=== PATIENT | female | born 1990 | race Caucasian/White ===

== ENCOUNTER 2019-06-08 00:26 | Emergency (ER) | payer MEDICAID, OTHER ==
[~2019-06-08] VITALS: Ht 167.7 cm; Wt 70.3 kg
[2019-06-08 00:26] VITALS: BP 121/66
[2019-06-08] MEDS ORDERED: LACTATED RINGERS 1,000 ML IV ONE (00:37)
[2019-06-08] MEDS ORDERED: fentaNYL INJECTION 100 MCG/2 ML AMP IVP ONE ×2 (00:45→01:15)
[2019-06-08] MEDS ORDERED: ONDANSETRON 4 MG/2 ML (SDV) Z0FRAN IVP ONE (00:45)
--- NOTE | 2019-06-08 00:46 | ED Abdominal Pain ---
General Stated Complaint: ABD PAIN Source of Information: Patient, EMS Exam Limitations: No Limitations History of Present Illness Date Seen by Provider: Jun 08, 2019 Time Seen by Provider: 00:26 Initial Comments The patient presents to ER by EMS from [facility] work [facility] with chief complaint that about an hour and a half prior to arrival she began to experience some epigastric pain is sharp 8 out of 10 By nausea but no vomiting. She's had this off-and-on for over a year now. When she was at [facility] in [place], [place] she was put in the hospital for elevated lipase for 2 days given fluids and pain medicines and then referred to a newspaper deliverer. She never followed up with newspaper deliverer of your primary care doctor since then she has had breast augmentation 3 months ago and for the past year and a half she has been on phentermine. She has not taken anything besides ibuprofen Rolaids tonight with minimal relief of her symptoms. She only occasionally drinks alcohol with last drink being over the weekend. She denies anything tonight. She denies a history of hyperlipidemia, hypertriglyceridemia, diabetes. She is having no abdominal surgeries or trauma. Has not vomited or had diarrhea. She has chronic constipation. She denies a history of cystic fibrosis. She's not having any shortness of breath or chest. Her chills. No dysuria or discharge. Allergies and Home Medications Allergies Coded Allergies: cefaclor (Verified Allergy, Unknown, 06/08/19) Patient Home Medication List Home Medication List Reviewed: Yes Review of Systems Review of Systems Constitutional: No chills, No fever, No malaise EENTM: No Blurred Vision, No Double Vision Respiratory: Denies Cough, Denies Shortness of Air Cardiovascular: Denies Chest Pain, Denies Irregular Heart Rate, Denies Lightheadedness, Denies Palpitations, Denies Syncope Gastrointestinal: See HPI, Abdominal Pain, Constipated; Denies Diarrhea; Nausea; Denies Vomiting Genitourinary: Denies Burning, Denies Discharge Musculoskeletal: No back pain, No joint pain Skin: No pruritus, No rash Psychiatric/Neurological: Denies Headache, Denies Numbness, Denies Paresthesia All Other Systems Reviewed Negative Unless Noted: Yes Past Bkreugh-Iymcia-Wmgnev Hx Patient Social History Alcohol Use: Occasionally Uses Number of Drinks Today: 0 Recreational Drug Use: No Smoking Status: Current Everyday Smoker Type Used: Cigarettes (0.5 ppd) Physical Exam Vital Signs Vital Signs - First Documented 06/08/19 00:26 Temp 36.6 Pulse 79 Resp 20 B/P (MAP) 121/66 (84) Pulse Ox 98 Capillary Refill : Height/Weight/BMI Height: '" Weight: lbs. oz. kg; BMI Method: General Appearance: WD/WN, mild distress HEENT: PERRL/EOMI, pharynx normal Neck: full range of motion, normal inspection Respiratory: lungs clear, normal breath sounds, no respiratory distress, no accessory muscle use Cardiovascular: normal peripheral pulses, regular rate, rhythm Peripheral Pulses: 2+ Dorsalis Pedis (R), 2+ Left Dors-Pedis (L), 2+ Radial Pulses (R), 2+ Radial Pulses (L) Gastrointestinal: normal bowel sounds (quiescent), soft, tenderness (epigastric region), other (negative for Barboza sign, right upper quadrant pain, McBurney's point tenderness or rebound tenderness. No mesenteric signs no psoas sign.) Back: normal inspection, no CVA tenderness Progress/Results/Core Measures Results/Orders Lab Results Laboratory Tests Test 06/08/19 00:35 06/08/19 02:00 Range/Units White Blood Count 8.3 4.3-11.0 10^3/uL Red Blood Count 4.64 4.35-5.85 10^6/uL Hemoglobin 13.5 11.5-16.0 G/DL Hematocrit 39 35-52 % Mean Corpuscular Volume 84 80-99 FL Mean Corpuscular Hemoglobin 29 25-34 PG Mean Corpuscular Hemoglobin Concent 35 32-36 G/DL Red Cell Distribution Width 13.2 10.0-14.5 % Platelet Count 238 130-400 10^3/uL Mean Platelet Volume 9.2 7.4-10.4 FL Neutrophils (%) (Auto) 54 42-75 % Lymphocytes (%) (Auto) 39 12-44 % Monocytes (%) (Auto) 6 0-12 % Eosinophils (%) (Auto) 1 0-10 % Basophils (%) (Auto) 0 0-10 % Neutrophils # (Auto) 4.4 1.8-7.8 X 10^3 Lymphocytes # (Auto) 3.2 1.0-4.0 X 10^3 Monocytes # (Auto) 0.5 0.0-1.0 X 10^3 Eosinophils # (Auto) 0.1 0.0-0.3 10^3/uL Basophils # (Auto) 0.0 0.0-0.1 10^3/uL Sodium Level 137 135-145 MMOL/L Potassium Level 3.6 3.6-5.0 MMOL/L Chloride Level 107 98-107 MMOL/L Carbon Dioxide Level 19 L 21-32 MMOL/L Anion Gap 11 5-14 MMOL/L Blood Urea Nitrogen 13 7-18 MG/DL Creatinine 0.73 0.60-1.30 MG/DL Estimat Glomerular Filtration Rate > 60 BUN/Creatinine Ratio 18 Glucose Level 100 70-105 MG/DL Calcium Level 9.6 8.5-10.1 MG/DL Corrected Calcium 9.2 8.5-10.1 MG/DL Total Bilirubin 0.7 0.1-1.0 MG/DL Aspartate Amino Transf (AST/SGOT) 15 5-34 U/L Alanine Aminotransferase (ALT/SGPT) 15 0-55 U/L Alkaline Phosphatase 58 40-136 U/L Troponin I < 0.028 <0.028 NG/ML Total Protein 7.2 6.4-8.2 GM/DL Albumin 4.5 3.2-4.5 GM/DL Amylase Level 36 25-125 U/L Lipase 9 8-78 U/L Serum Test, Qualitative NEGATIVE NEGATIVE Urine Color YELLOW Urine Clarity SL CLOUDY Urine pH 8.0 5-9 Urine Specific [place] 1.015 L 1.016-1.022 Urine Protein NEGATIVE NEGATIVE Urine Glucose (UA) NEGATIVE NEGATIVE Urine Ketones NEGATIVE NEGATIVE Urine Nitrite NEGATIVE NEGATIVE Urine Bilirubin NEGATIVE NEGATIVE Urine Urobilinogen 0.2 < = 1.0 MG/DL Urine Leukocyte Esterase NEGATIVE NEGATIVE Urine RBC (Auto) NEGATIVE NEGATIVE Urine RBC NONE /HPF Urine WBC NONE /HPF Urine Squamous Epithelial Cells RARE /HPF Urine Crystals PRESENT H /LPF Urine Amorphous Sediment MOD STANISLAW PHOSPHATE H /LPF Urine Bacteria LARGE H /HPF Urine Casts NONE /LPF Urine Mucus NEGATIVE /LPF Urine Culture Indicated NO My Orders Orders - SHIRIN PINEDA Ed Iv/Invasive Line Start (06/08/19 00:37) Lactated Ringers (Lr 1000 Ml Iv Solution (06/08/19 00:37) Fentanyl Injection (Sublimaze Injection (06/08/19 00:45) Ondansetron Injection (Zofran Injectio (06/08/19 00:45) Cbc With Automated Diff (06/08/19 00:37) Comprehensive Metabolic Panel (06/08/19 00:37) Lipase (06/08/19 00:37) Amylase (06/08/19 00:37) Ua Culture If Indicated (06/08/19 00:37) Hcg,Qualitative Serum (06/08/19 00:37) Ct Abdomen/Pelvis W (06/08/19 00:37) Ekg Tracing (06/08/19 00:43) Continuous Ekg Monitoring (06/08/19 00:43) Troponin I (06/08/19 00:43) Fentanyl Injection (Sublimaze Injection (06/08/19 01:15) Iohexol Injection (Omnipaque 350 Mg/Ml 1 (06/08/19 01:15) Received Contrast (Hold Metformin- Contr (06/08/19 01:15) Ns (Ivpb) (Sodium Chloride 0.9% Ivpb Bag (06/08/19 01:15) Medications Given in ED Current Medications Medications Dose Ordered Sig/Dolores Route Start Time Stop Time Status Last Admin Dose Admin Fentanyl Citrate 50 mcg ONCE ONCE IVP 06/08/19 00:45 06/08/19 00:46 DC 06/08/19 00:55 50 MCG Fentanyl Citrate 50 mcg ONCE ONCE IVP 06/08/19 01:15 06/08/19 01:16 DC 06/08/19 01:30 50 MCG Iohexol 100 ml ONCE ONCE IV 06/08/19 01:15 06/08/19 01:16 DC 06/08/19 01:38 100 ML Lactated Ringer's 1,000 ml @ 0 mls/hr Q0M ONCE IV 06/08/19 00:37 06/08/19 00:43 DC 06/08/19 01:00 1,000 MLS/HR Ondansetron HCl 8 mg ONCE ONCE IVP 06/08/19 00:45 06/08/19 00:46 DC 06/08/19 00:55 8 MG Sodium Chloride 100 ml ONCE ONCE IV 06/08/19 01:15 06/08/19 01:16 DC 06/08/19 01:38 80 ML Vital Signs/I&O 06/08/19 00:26 Temp 36.6 Pulse 79 Resp 20 B/P (MAP) 121/66 (84) Pulse Ox 98 Progress Progress Note : Time: 01:09 Progress Note Suspect highly she's having pancreatitis. Since she is on phentermine and her pain is close to her chest her plan is to get an EKG and troponin as well. CT abdomen pelvis. Fentanyl, Zofran. Initial ECG Impression Date: Jun 08, 2019 Initial ECG Impression Time: 00:33 Initial ECG Rate: 60 Initial ECG Rhythm: Normal Sinus Initial ECG Intervals: Normal Initial ECG Impression: Normal Comment Normal sinus rhythm without ST elevation or depression. Diagnostic Imaging Diagonstic Imaging: CT Plain Films/CT/US/NM/MRI: abdomen, pelvis Comments Lung bases are clear. Motion degraded study. Mild hepatosplenomegaly and hepatic steatosis. There are no acute findings involving the solid abdominal organs. The gallbladder and biliary tree are unremarkable. There are significant proximal small bowel demonstrating at least mild circumferential wall thickening. Negative for lower GI tract obstruction, pneumatosis or focal wall thickening. Findings are most consistent with acute enteritis is likely infectious or inflammatory. The appendix is normal. Negative for abdominal aortic aneurysm. The urinary bladder is mildly distended with no wall thickening or stones. Prominent left ovarian and follicle/functional cyst measuring approximately 24 mm. Nonspecific heterogenous enlargement of the cervix requiring clinical correlation to exclude cervicitis or carcinoma. Negative for pneumoperitoneum or significant abdominal/pelvic fluid collections. Reviewed: [facility] Reviewed by Me Departure Impression Primary Impression: Gastroenteritis and colitis, viral Disposition: 01 HOME, SELF-CARE Condition: Stable Departure-Patient Inst. Decision time for Depature: 03:22 Patient Instructions: Viral Gastroenteritis, Adult (DC) Add. Discharge Instructions: Your symptoms should last between 3 and 5 days and then improve and go away. You may develop diarrhea. Let this happen for the first 1-2 days and then if you want to use Imodium 2 tablets followed by one tablet every 4 hours for loose watery stools that is okay. Stick to a clear liquid diet until your symptoms are improving and then you can introduce bland foods such as bananas, rice, applesauce, toast etc. Sports drinks are encouraged. Stay hydrated. If you have pain you may use Tylenol 1000 mg every 8 hours in addition to ibuprofen 800 mg every 8 hours. Heating pads, walking around the house, chewing gum all may be helpful. If you develop a fever above 102.5, intractable abdominal pain or nausea that does not go away with ondansetron under the tongue every 6 hours as needed then you should follow-up with the ER. Otherwise plan to follow up with primary care as necessary. Schedule a follow-up appointment with your surgeon to discuss the pain in your breast. Gentle massage can help with prevention of encapsulation. Scripts Ondansetron (Ondansetron Odt) 4 Mg Tab.rapdis 4 MG PO Q6H PRN for NAUSEA/VOMITING, #12 TAB 0 Refills Prov: SHIRIN PINEDA 06/08/19 Work/School Note: Work Release Form Date Seen in the Emergency Department: Jun 08, 2019 Return to Work: Jun 14, 2019 Restrictions: No Restrictions SHIRIN PINEDA Jun 08, 2019 00:46 POS
[2019-06-08 00:49] LABS: BASOPHILS % (AUTO) 0 % (0-10); EOSINOPHILS # (AUTO) 0.1 10^3/uL (0.0-0.3); EOSINOPHILS % (AUTO) 1 % (0-10); HEMATOCRIT 39 % (35-52); HEMOGLOBIN 13.5 G/DL (11.5-16.0); LYMPHOCYTES # (AUTO) 3.2 X 10^3 (1.0-4.0); LYMPHOCYTES % (AUTO) 39 % (12-44); MEAN CORPUSCULAR HEMOGLOBIN 29 PG (25-34); MEAN CORPUSCULAR HGB CONC 35 G/DL (32-36); MEAN CORPUSCULAR VOLUME 84 FL (80-99); MEAN PLATELET VOLUME 9.2 FL (7.4-10.4); MONOCYTES # (AUTO) 0.5 X 10^3 (0.0-1.0); MONOCYTES % (AUTO) 6 % (0-12); NEUTROPHILS # (AUTO) 4.4 X 10^3 (1.8-7.8); NEUTROPHILS % (AUTO) 54 % (42-75); PLATELET COUNT 238 10^3/uL (130-400); RED CELL DISTRIBUTION WIDTH 13.2 % (10.0-14.5); WHITE BLOOD COUNT 8.3 10^3/uL (4.3-11.0)
[2019-06-08 01:03] LABS: ALANINE AMINOTRANSFERASE 15 U/L (0-55); ALBUMIN 4.5 GM/DL (3.2-4.5); ALKALINE PHOSPHATASE 58 U/L (40-136); AMYLASE 36 U/L (25-125); BILIRUBIN,TOTAL 0.7 MG/DL (0.1-1.0); BUN/CREATININE RATIO 18; CALCIUM 9.6 MG/DL (8.5-10.1); CARBON DIOXIDE 19 MMOL/L (21-32); CHLORIDE 107 MMOL/L (98-107); CREATININE SERUM 0.73 MG/DL (0.60-1.30); GFR ESTIMATED > 60; GLUCOSE 100 MG/DL (70-105); LIPASE 9 U/L (8-78); POTASSIUM 3.6 MMOL/L (3.6-5.0); SODIUM 137 MMOL/L (135-145); TOTAL PROTEIN 7.2 GM/DL (6.4-8.2)
[2019-06-08] MEDS ORDERED: HOLD METFORMIN - RECEIVED CONTRAST 20 ML VIAL IV SCH (01:15)
[2019-06-08] MEDS ORDERED: IOHEXOL 350 MG/ML 100 ML (OMNIPAQUE 350) VIAL IV ONE (01:15)
[2019-06-08] MEDS ORDERED: NS 100 ML (IVPB) BAG IV ONE (01:15)
[2019-06-08 02:08] LABS: BILIRUBIN,URINE NEGATIVE (NEGATIVE); CLARITY,URINE SL CLOUDY; COLOR,URINE YELLOW; GLUCOSE, URINE (UA) NEGATIVE (NEGATIVE); KETONES,URINE NEGATIVE (NEGATIVE); LEUKOCYTE ESTERASE ,URINE NEGATIVE (NEGATIVE); NITRITE,URINE NEGATIVE (NEGATIVE); PROTEIN,URINE NEGATIVE (NEGATIVE)
[2019-06-08 02:15] LABS: AMORPHOUS SEDIMENT,UR MOD AMOR PHOSPHATE /LPF; BACTERIA,URINE LARGE /HPF; SQUAMOUS EPITHELIAL CELL,UR RARE /HPF
[2019-06-08] MEDS ORDERED: ONDA4TAB11 PO (03:26)
[2019-06-08] MEDS ORDERED: RX-ONDANSETRON 4 MG ODT (ZOFRAN) PPK #4 PO STA (03:27)
[2019-06-08] MEDS ORDERED: KETOROLAC 30 MG/ML VIAL IVP ONE (03:30)
--- NOTE | 2019-06-08 06:49 | Diagnostic Imaging Report ---
PROCEDURE: CT abdomen and pelvis with contrast. TECHNIQUE: Multiple contiguous axial images were obtained through the abdomen and pelvis after administration of intravenous contrast. Auto Exposure Controls were utilized during the CT exam to meet ALARA standards for radiation dose reduction. INDICATION: Epigastric abdominal pain. COMPARISON: None. FINDINGS: Lung bases are clear. The liver, gallbladder, pancreas, spleen, adrenals, kidneys, collecting systems, bladder and appendix are negative. Nonspecific cyst in the left adnexa measuring up to 2.0 cm. Reproductive structures are otherwise grossly unremarkable. No free intraperitoneal air or fluid. No lymphadenopathy. No evidence of bowel obstruction. No acute osseous findings. IMPRESSION: 1. No acute CT findings in the abdomen or pelvis. 2. Nonspecific 2.0 cm cyst in the left adnexa presumably ovarian. This could be further evaluated with pelvic ultrasound if clinically warranted. No free fluid in the pelvis. Dictated by: Dictated on workstation # [id number]
== END 2019-06-08 03:49 | disposition home or self-care (01) ==
LOC: ER 00:28
DX: A08.4 Viral intestinal infection, unspecified (principal); F17.210 Nicotine dependence, cigarettes, uncomplicated; Z88.1 Allergy status to other antibiotic agents
CPT/HCPCS: 36415; 74177; 80053; 81000; 82150; 83690; 84484; 84703; 85025; 93005; 96361; 96374; 96375; 96376